=== PATIENT | female | born 2000 | race Caucasian/White ===

== ENCOUNTER 2021-09-13 13:22 | Emergency (ER) | payer OTHER ==
[~2021-09-13] VITALS: Ht 175.3 cm; Wt 109.1 kg
[2021-09-13 13:24] VITALS: BP 109/75
[2021-09-13] MEDS ORDERED: TOPI25 PO (13:29)
[2021-09-13 13:59] LABS: COVID AG,FIA SOURCE NASAL SWAB
[2021-09-13] MEDS ORDERED: AMOX250C4 PO (14:30)
== END 2021-09-13 14:44 | disposition home or self-care (01) ==
LOC: EMS 13:22
DX: J02.9 Acute pharyngitis, unspecified (principal); G43.909 Migraine, unspecified, not intractable, without status migrainosus; Z86.69 Personal history of other diseases of the nervous system and sense organs; Z20.822 Contact with and (suspected) exposure to COVID-19
CPT/HCPCS: 87430; 99283